=== PATIENT | male | born 1945 | race Caucasian/White ===

== ENCOUNTER 2016-11-11 16:24 | Observation (INO) ==
[2016-11-11] MEDS ORDERED: PHENERGAN IM ONE (18:09)
[2016-11-11] MEDS ORDERED: DILAUDID IM ONE (18:09)
[2016-11-11] MEDS ORDERED: NS 500 ML IV ONE (18:49)
--- NOTE | 2016-11-11 18:58 | PROVIDER DOCUMENTATION ---
This chart was entered by Yesica Alejandre Scribe, acting as scribe for Graeme Snyder MD. HPI-Abdominal Pain/GI Problem - General Chief Complaint: Generalized Pain Stated Complaint: SENT BY DR CARABALLO Time Seen by Provider: 11/11/16 18:00 Source: patient Allergies/Adverse Reactions: Patient Allergies Allergy/AdvReac Type Severity Reaction Status Date / Time adhesive Allergy ITCHING Verified 11/11/16 18:25 Home Medications: Home Medication List Medication Instructions Recorded Confirmed Last Taken Type Citalopram [Celexa] 20 mg PO DAILY 12/28/13 11/11/16 09/19/14 20:00 History Clonidine HCl 0.1 mg PO BID 12/28/13 11/11/16 09/20/14 05:00 History Lorazepam [Ativan] 1 mg PO DAILY 12/28/13 11/11/16 09/19/14 20:00 History SIMVAstatin [Zocor] 40 mg PO DAILY 12/28/13 11/11/16 09/19/14 20:00 History Cholecalciferol (Vit D3) [Vitamin 5,000 unit PO DAILY 09/13/14 11/11/16 05:00 History D] Hydrocodone/Acetaminophen [[place] 10 mg PO Q4-6H PRN PRN 09/13/14 11/11/16 04:00 History 10-325 Tablet] Omeprazole [Prilosec] 40 mg PO DAILY@0700 09/13/14 11/11/16 09/20/14 05:00 History Propranolol HCl [Inderal Xl] 80 mg PO DAILY 09/13/14 11/11/16 09/20/14 05:00 History Vitamin B Complex 100 No.2 [B100 100 mg PO DAILY 09/13/14 11/11/16 09/20/14 05: 00 History Balanced] Apixaban [Eliquis] 2.5 mg PO BID #0 09/21/14 11/11/16 09/16/14 Rx Hydrocodone/APAP 10 mg/325 mg 1 each PO Q8H PRN PRN #5 tablet 09/21/14 11/11/16 Unknown Rx [[place]-10] Sulfamethoxazole/Trimethoprim 1 each PO BID #6 tablet 09/21/14 11/11/16 Unknown Rx [Bactrim Ds Tablet] - History of Present Illness-ABD Nature of Presenting Problems: 71 Y/O M presents to ED with ABD issues. Pt was sent over by Dr. Caraballo,who spoke to a charge nurse about unclogging the feeding tube. Pt daughter states pt hasn't been able to eat and they tried using come to clear the feeding tube and it hasn't unclogged. Pt daughter states that pt was in rehab and she doesn' t believe they were diluting the food before passing through the feeding tube. Abdominal Pain Onset Location: reports: LLQ Pain Radiation: reports: no radiation Quality of Pain: reports: aching Severity in ED: reports: moderate, severe Onset/Duration: reports: this evening Timing: reports: still present Activities at Onset: reports: none Associated Symptoms: denies: cough, diarrhea, fever/chills, sinus congestion/ drainage, nausea, weakness Review of Systems - Adult - REVIEW OF SYSTEMS - ADULT Constitutional: denies: chills, fever Eyes: reports: no symptoms reported Ears, Nose, Mouth & Throat: reports: no symptoms reported Cardiovascular: reports: no symptoms reported Respiratory: denies: cough, shortness of breath Gastrointestinal: reports: abdominal pain. denies: diarrhea, nausea, vomiting Genitourinary: reports: no symptoms reported Musculoskeletal: reports: no symptoms reported Integumentary: reports: no symptoms reported Neurological: reports: no symptoms reported Psychiatric: reports: no symptoms reported Endocrine: reports: no symptoms reported Hematologic/Lymphatic: reports: no symptoms reported Allergic/Immunologic: reports: no symptoms reported All Other Systems: Reviewed and Negative Past History - Adult - PAST MEDICAL HISTORY-ADULT Review of Records: reports: Old Records Reviewed, Nursing Assessment Review, Medications Reviewed, Social history reviewed & non-contributory. Major Childhood Illnesses: reports: denies history Cardiovascular: reports: denies history Respiratory: reports: denies history Gastrointestinal: reports: denies history Obstetrical/Gynecological: reports: denies history Genitourinary: reports: denies history Musculoskeletal: reports: denies history Neurological: reports: denies history Endocrine/Immune: reports: denies history Other Conditions: reports: denies history - IMMUNIZATION STATUS Childhood Immunizations: See Nurse Assessment Flu Vaccine: See Nurse Assessment - FAMILY HISTORY Family History: reviewed, not pertinent - SOCIAL HISTORY Smoking: cigarettes Physical Exam-General - CONSTITUTIONAL General Appearance: alert, mild distress - EYES Eyes: PERRL/EOMI, pink conjunctivae - HEAD, EARS, NOSE, MOUTH & THROAT HENMT: moist mucous membranes, normal ENT inspection, TMs normal, pharynx normal - NECK Neck: full range of motion, supple, normal inspection - RESPIRATORY Respiratory: lungs clear, normal breath sounds - CARDIOVASCULAR Cardiovascular: normal peripheral pulses, regular rate, rhythm - GASTROINTESTINAL (ABDOMEN) Abdominal Exam: other (llq feeding tube) - MUSCULOSKELETAL Back Exam: no CVA tenderness, no vertebral tenderness Extremity: non-tender, normal gait - SKIN Integumentary: normal color, normal turgor - PSYCHIATRIC Psych/Mental Status: normal mood/affect, normal thought content, normal thought process, oriented x 3 Progress - PLAN OF CARE/RESULTS Progress/Plan/Lab Results: Vital Signs - 8 hr 11/11/16 16:31 Temperature 97.4 F L Pulse Rate 74 Respiratory Rate 18 Blood Pressure 142/72 O2 Sat by Pulse Oximetry 98 - CONSULTS/PCP/HOSPITALIST Notification #1 *Consult/PCP/Hospitalist*: Time Discussed: 18:49 Reason/Comments: Plan of Care Consult Disposition: other (Not to remove the peg tube recent surgery) Departure - Departure Date of Disposition Decision: 11/11/16 Time of Disposition Decision: 18:57 DIAGNOSIS: Feeding tube blocked Qualifiers: Encounter type: initial encounter Qualified Code(s): T85.598A - Other mechanical complication of other gastrointestinal prosthetic devices, implants and grafts, initial encounter Disposition: ADMITTED INPATIENT 09 Certified Medical Emergency: Emergent Condition: Good Referrals and Follow-Ups: Thad Lu [Primary Care Provider] - Discharge Education: Smoking, You Can Quit, [id number] - Critical Care Note This patient required my direct & personal management of CC.: No Attestation - Physician/ JAYA Attestation Patient care was provided by Advanced Practice Provider:: No The physician spent face to face time with patient:: Yes Advanced Practice Provider documentation review:: Supervising physician onsite and consulted in the evaluation and care of this patient. The physician did have a face to face encounter with the patient. This chart was documented by the indicated scribe, (Yesica Alejandre Scribe) and accurately reflects the services I performed and decisions made by me, Graeme Snyder MD, as attested by the provider's signature.
[2016-11-11 20:29] LABS: MANUAL DIFF NEEDED? NO
[2016-11-11 20:33] LABS: BASO% 0.9 % (0.0-0.8); EOS# 0.23 X1000 (0.0-0.7); HEMATOCRIT 25.8 % (42.0-52.0); HEMOGLOBIN 7.6 g/dL (14.0-18.0); IMM GRAN# 0.02 X1000 (0.0-0.04); IMM GRAN% 0.3 % (0.0-0.5); LYMPH# 1.98 X1000 (1.2-3.4); LYMPH% 25.4 % (20.5-51.1); MCH 26.3 PG (27-31); MCHC 29.5 g/dL (33-37); MCV 89.3 FL (81-99); MONO# 0.76 X1000 (0.11-0.59); MONO% 9.8 % (1.7-9.3); MPV 8.6 FL (7.4-10.4); NEUT% 60.6 % (42.2-75.2); PLT 665 X1000 (130-400); RBC 2.89 XMIL (4.7-6.1)
[2016-11-11 20:53] LABS: AGAP 6; ALKALINE PHOSPHATASE 80 U/L (32-122); BUN 16 mg/dL (8-22); CALCIUM 8.8 mg/dL (8.8-10.2); CHLORIDE 102 mmol/L (98-107); COSMO 286; GOT 13 U/L (10-34); GPT 6 U/L (10-44); POTASSIUM 4.4 mmol/L (3.5-5.1); SODIUM 143 mmol/L (136-145); TCO2 35 mmol/L (25-35); TOTAL BILIRUBIN < 0.10 mg/dL (0.20-1.00); TOTAL PROTEIN 6.6 g/dL (6.3-8.3)
[2016-11-11] MEDS ORDERED: ZOFRAN IV PRN (21:39)
--- NOTE | 2016-11-11 22:47 | HISTORY AND PHYSICAL ---
PRIMARY CARE PHYSICIAN: Unknown. CHIEF COMPLAINT: PEG tube dislodged. HISTORY OF PRESENTING ILLNESS: A 71-year-old male with a history of rectal cancer, hypertension, hyperlipidemia, COPD and recurrent small bowel obstruction who had presented to the emergency department due to his PEG tube which was dislodged. He was evaluated in the ER and it was thought that he would need admission to replace the PEG tube. The patient is a poor historian. Most of the history is obtained from his previous records; however, he had denied having any fevers, chills, chest pain, shortness of breath. PAST MEDICAL HISTORY: Rectal cancer, hypertension, hyperlipidemia, COPD, CVA, migraines, recurrent small-bowel obstructions. PAST SURGICAL HISTORY: Abdominal surgery. Colostomy. ALLERGIES: Adhesive tape. CURRENT MEDICATIONS: Listed in medication reconciliation. SOCIAL HISTORY: 40+ pack year history of smoking. History of alcohol use in the past. FAMILY HISTORY: No history of coronary disease. REVIEW OF SYSTEMS: Twelve point review of systems is as listed in HPI. Other systems negative. PHYSICAL EXAMINATION: GENERAL: Cooperative, friendly male. He is resting comfortably now. VITAL SIGNS: Temperature 97.4 degrees pulse 74, respiration 18, blood pressure 142/72. HEENT: Atraumatic, normocephalic. Extraocular movements intact. PERRLA. NECK: No masses. CHEST: Clear to auscultation. CARDIOVASCULAR: Regular rate and rhythm. ABDOMEN: Soft. The PEG tube seems displaced. Colostomy in place. : No bladder distention. SKIN: Warm. NEUROLOGIC: He is awake, alert, oriented x1. LABORATORIES AND STUDIES: WBC 7.78, hemoglobin 7.6, hematocrit 25.8, platelets 665,000. Sodium 143, potassium 4.4, chloride 102, CO2 is 35, BUN is 16, creatinine 0.4, glucose is 87. ASSESSMENT: A 71-year-old male with a history of rectal cancer, hypertension, hyperlipidemia and COPD, who had presented to the emergency department due to PEG tube malfunction. Patient will be admitted for further evaluation by Gastroenterology for possible replacement of his PEG tube. 1. PEG tube dislodgement/malfunction. 2. Rectal cancer. 3. Chronic obstructive pulmonary disease. 4. Hypertension. PLAN: 1. We will admit patient to medical floor with telemetry. 2. We will keep patient NPO right now. 3. We will consult electronics tech. 4. Continue with gentle hydration. Support treatment with pain control. Antiemetics as needed. 5. Resume his home medications. 6. Patient on DVT prophylaxis with SCDs. 7. Continue to follow and reassess. cc: Carrington Cintron MD
--- NOTE | 2016-11-12 03:30 | CONSULTATION ---
DATE OF CONSULTATION: 11/11/2016 REFERRING PHYSICIAN: Dr. Schumacher, [facility]. INDICATION FOR CONSULTATION: Dysfunctional PEG tube. HISTORY OF PRESENT ILLNESS: The patient is a 71-year-old, white male who is followed in our clinic for metastatic colorectal cancer as well as multiple colon polyps. He was recently found to have aggressive recurrent disease after many years of being in remission. He was also found to have urethral obstruction and approximately 10 days ago, underwent a urostomy at [facility]. He also had a gastrostomy tube placed as he was found to have postoperative dysphagia with aspiration immediately following extubation postoperatively. According to his daughter, he underwent a swallow study today but the results are pending. However, he was sent to our office urgently because his gastrostomy tube became plugged after he received his morning medications. The long term staff tried for several hours to unclog his feeding tube. He presented to our office. We were unable to unclog the feeding tube and now in the emergency room , his feeding tube remains clogged. Because he has been unable to use his gastrostomy feeding tube , he has been unable to receive tube feedings and his usual medications. The patient's gastrostomy tube was placed approximately 10 days ago and therefore does not have a mature tract which prevents us from replacing his feeding tube at bedside. He is being admitted for IV hydration, reevaluation of his swallow, and for nutrition support. He will also need evaluation of his gastrostomy tube. Therefore, we are asked to participate in his care. PAST MEDICAL HISTORY: 1. Rectal cancer at the rectosigmoid junction, status post an abdominoperineal resection, chemotherapy, and radiation. 2. Metastatic disease with recurrence in 2016. 3. Recurrent partial small bowel obstruction. 4. Hypertension. 5. Hyperlipidemia. 6. COPD. 7. Active smoker. 8. Chronic anxiety. 9. Depression. 10. Arthralgias. 11. Migraine headaches. 12. History of a stroke. 13. Ureteral obstruction requiring a urostomy. 14. Local extension of his tumor with possible involvement of his bladder. 15. DVT. 16. Anxiety. 17. Depression. 18. GI bleed secondary to gastritis and gastric ulcer disease. 19. Chronic constipation. 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 22. 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 PAST SURGICAL HISTORY: 1. Abdominoperineal resection with end-colostomy. 2. Urostomy. 3. Gastrostomy tube. 4. Exploratory laparotomy with lysis of adhesions. 5. Exploratory laparotomy to reverse small bowel obstruction. SOCIAL HISTORY: The patient has smoked 1 pack per day for over 40 years. Although he drank heavy in the past, he stopped drinking in 2012. He is currently on disability. FAMILY HISTORY: Noncontributory to his current medical condition. MEDICATION ALLERGIES: None. He is allergic to adhesives. MEDICATIONS AT THE TIME OF ADMISSION: 1. Vitamin B complex 100 mg daily. 2. Bactrim DS 1 p.o. b.i.d. 3. Zocor 40 mg p.o. daily. 4. Inderal XL 80 mg p.o. daily. 5. Omeprazole 40 mg daily. 6. Ativan 1 mg daily. 7. [place] 10 one p.o. every 8 hours. 8. Clonidine 0.1 mg p.o. b.i.d. 9. Celexa 20 mg daily. 10. Vitamin D 5000 units daily. 11. Eliquis 2.5 mg p.o. b.i.d. PHYSICAL EXAMINATION: General: On exam, he is ill-appearing and in pain. Vital Signs: His blood pressure is 142/72, pulse 74, respirations 18, temperature of 97.4 degrees. His oxygen saturation is 98% on room air. His height is 5 feet 6 inches tall. His weight is 102 pounds which is an interval decrease from his usual body weight of 145 pounds. HEENT: Positive for temporal muscle wasting. His conjunctivae are pale. His sclerae are anicteric. His oropharyngeal mucosa membranes are extremely dry. Pulmonary: His lungs are clear to auscultation with normal expiratory effort. Cardiovascular: Examination reveals regular rate and rhythm with no gallops, murmurs, or rubs. Abdominal Examination: He has normoactive bowel sounds. The abdomen is soft with mild diffuse tenderness. There is an end-colostomy in the left lower quadrant. There is a urostomy in the suprapubic area and a gastrostomy tube in the left upper quadrant. The gastrostomy tube has pale concretions remaining in the tube. In clinic, we were unable to flush the tube after multiple attempts. Despite indwelling of Coca Cola and warm water, we were unable to flush his tube in the emergency room. Extremities: Bilaterally are remarkable for muscle wasting. LABORATORY DATA: Reveals a hemoglobin of 7.6, with hematocrit of 25.8, and a white count of 7.78. He has 665,000 platelets. Sodium is 143, potassium 4.4, chloride 102, CO2 35, BUN 16, creatinine 0.4, with a glucose of 87. Calcium is 8.8, total bilirubin less than 0.1, AST 13, ALT 6, alkaline phosphatase 80, total protein 6.6, and albumin of 3. IMPRESSION: 1. Dysfunctional percutaneous endoscopic gastrostomy. 2. Metastatic colorectal cancer. 3. Protein calorie malnutrition. 4. Marasmus. 5. Significant iron deficiency anemia. RECOMMENDATION: 1. With regard to his gastrostomy tube, because it was placed 10 days ago, we were unable to manipulate the tract. Please do not attempt to replace the tube or change the tube for 6-8 weeks as the tract is immature and at increased risk for peritonitis. 2. From a nutrition standpoint, the patient had a swallow study today. We will attempt to obtain those results tomorrow. If we are able to advance his diet to oral intake, that would be most beneficial for this patient. 3. He will need to maintain his existing G-tube in place for a minimum of 6-8 weeks before it can be removed. 4. With regard to the iron deficiency anemia, I would transfuse the patient to keep his hemoglobin above 8 given that he has chronic obstructive pulmonary disease, heart disease, and has a history of a deep venous thrombosis. 5. The patient is currently on Eliquis. Therefore, I will only plan to perform endoscopic intervention if there is evidence of active bleeding. 6. From a nutrition standpoint, please keep the patient nothing per oral overnight. We will assess his nutritional status once we have a swallow study in the morning and we are able to identify his risk for aspiration. 7. Please consult Dr. Valentino Shepherd in the morning. The patient is known to him. If he needs additional nutrition support, I would recommend providing parental nutrition pending further evaluation. 8. Please check a prealbumin in the morning. 9. Additional recommendations to follow based on his clinical course. cc: MD Carrington Colon MD Surrinder Paul Dang, MD Jay Pohl, MD MTDD
[2016-11-12 07:26] LABS: MANUAL DIFF NEEDED? NO
[2016-11-12 07:27] LABS: BASO% 1.2 % (0.0-0.8); EOS# 0.26 X1000 (0.0-0.7); EOS% 4.4 % (0.0-10.0); HEMATOCRIT 29.4 % (42.0-52.0); HEMOGLOBIN 8.7 g/dL (14.0-18.0); IMM GRAN# 0.03 X1000 (0.0-0.04); IMM GRAN% 0.5 % (0.0-0.5); LYMPH% 30.2 % (20.5-51.1); MCH 26.4 PG (27-31); MCHC 29.6 g/dL (33-37); MCV 89.1 FL (81-99); MONO# 0.68 X1000 (0.11-0.59); MONO% 11.4 % (1.7-9.3); NEUT% 52.3 % (42.2-75.2); PLT 636 X1000 (130-400)
[2016-11-12 07:42] LABS: AGAP 12; ALBUMIN 3.1 g/dL (3.5-5.0); ALKALINE PHOSPHATASE 87 U/L (32-122); BUN 14 mg/dL (8-22); CALCIUM 8.7 mg/dL (8.8-10.2); CHLORIDE 100 mmol/L (98-107); COSMO 283; GOT 14 U/L (10-34); GPT 7 U/L (10-44); POTASSIUM 4.8 mmol/L (3.5-5.1); SODIUM 142 mmol/L (136-145); TCO2 30 mmol/L (25-35); TOTAL BILIRUBIN 0.17 mg/dL (0.20-1.00); TOTAL PROTEIN 6.3 g/dL (6.3-8.3)
[2016-11-12] MEDS: ATIVAN PEG SCH ×2 (08:46→14:09)
[2016-11-12] MEDS: CELEXA PEG SCH ×2 (08:46→14:09)
[2016-11-12] MEDS: CATAPRES PEG SCH ×3 (08:46→20:58)
[2016-11-12] MEDS: ELIQUIS PEG SCH ×3 (08:46→20:58)
[2016-11-12] MEDS: PRILOSEC MISC SCH ×2 (08:46→14:09)
--- NOTE | 2016-11-12 10:09 | Diag Imaging Result Doc PS360 ---
DIPAK SWALLOW W/VIDEO SPEECH THER - 11/12/2016 INDICATION: dysphagia, dysfunctional peg TECHNIQUE: Total fluoroscopy time was 17 seconds. 71 images were obtained. COMPARISON: None FINDINGS: There was a single aspiration event on the first swallow with thin liquids. After that, the patient took several swallows with thin liquids and pureed solid consistencies without any difficulty. The swallowing function was prompt. IMPRESSION: Single aspiration event on the first swallow with thin liquids of uncertain significance. Remainder of the exam was quite successful. Electronically signed by Tay Harris 11/12/2016 10:06 AM
--- NOTE | 2016-11-12 15:33 | PROGRESS NOTE ---
DATE: 11/12/2016 SUBJECTIVE: The patient is resting comfortably in bed. No acute events noted overnight. OBJECTIVE: Vital Signs: Temperature 97 degrees, blood pressure 119/51, heart rate 65, respirations 18, O2 saturations 95% on room air. General: Elderly male, lying in bed, in no acute distress. Head: Normocephalic, atraumatic. Heart: S1, S2. Normal. Regular rate and rhythm. Lungs: Equal air entry bilaterally. No crackles. No rales. Abdomen: Positive bowel sounds. Soft, nontender, nondistended. LABORATORY: White blood cell count 5.9, hemoglobin 8.7, hematocrit 29, platelets 636,000. BUN 14, creatinine 0.4, sodium 142, potassium 4.8, chloride 100, CO2 30. ASSESSMENT AND PLAN: 1. G-tube displacement. We will monitor this closely. GI is following. 2. Nutrition. The patient had a modified barium swallow today that was unremarkable. We will start the patient on a mechanical soft diet. 3. History of rectal cancer status post resection as well as chemotherapy and radiation. Aware. 4. Chronic obstructive pulmonary disease. Stable. 5. Hypertension. Controlled. 6. Acute cerebrovascular accident. Aware. 7. Chronic anticoagulation. Continue on Eliquis. cc: MD Carrington Ingram MD
[2016-11-12] MEDS: DILAUDID IV PRN (20:16)
[2016-11-12] MEDS ORDERED: ZOCOR PEG SCH (21:00)
--- NOTE | 2016-11-12 22:13 | PROGRESS NOTE ---
DATE: 11/12/2016 SUBJECTIVE: The patient states that he is feeling significantly better today. He underwent a swallow study that was negative for aspiration. He is able to tolerate a mechanical soft diet. He has also been placed on oral pain medications with some improvement in his pain, but he remains comfortable. OBJECTIVE: Vital signs: His blood pressure is 126/52, pulse 66, respiration 20 , temperature of 97.8 degrees. HEENT: Negative for jaundice. Abdomen: Remarkable for the colostomy, gastrostomy tube and ileostomy. OBJECTIVE DATA: Reveals a hemoglobin of 8.7 with hematocrit of 29.4 and a white count of 5.97. His platelet count is 636,000. Sodium is 142, potassium 4.8, chloride 100, CO2 of 30, BUN of 14, creatinine 0.4 with a glucose of 90. Calcium is 8.7, total bilirubin 0.17, AST 14, ALT 7, alkaline phosphatase 87, total protein 6.3, and albumin 3.1. His pre-albumin is 22. His vitamin D 25-hydroxy is 31.4. RECOMMENDATION: 1. From a gastrointestinal perspective, the patient is able to tolerate a mechanical soft diet. Therefore, I would advance his diet accordingly. 2. The patient has a new indwelling PEG. It cannot be removed or manipulated for at least 6-8 weeks. Because it is clogged, I recommend careful monitoring of the surrounding skin, but no intervention or manipulation of the tube itself. 3. From a nutrition perspective, the patient would benefit from continuing his inpatient rehab. I have discussed this with the daughter who will work with Loan Counselor in order to achieve this. 4. He will need to return to clinic in 6-8 weeks for interval reassessment. At that time, we will schedule removal of the feeding tube. cc: MD Carrington Colon MD Jay Pohl, MD Katherine Takundwa, MD Surrinder Paul Dang, MD MTDD
[2016-11-13] MEDS: DILAUDID IV PRN ×3 (00:30→15:23)
[2016-11-13] MEDS ORDERED: DILAUDID IV ONE (01:57)
[2016-11-13] MEDS: PRILOSEC MISC SCH (06:22)
[2016-11-13 06:47] LABS: AGAP 11; BUN 15 mg/dL (8-22); CALCIUM 8.9 mg/dL (8.8-10.2); CHLORIDE 99 mmol/L (98-107); COSMO 284; POTASSIUM 4.7 mmol/L (3.5-5.1); SODIUM 142 mmol/L (136-145); TCO2 32 mmol/L (25-35)
[2016-11-13 07:10] LABS: HEMATOCRIT 28.1 % (42.0-52.0); HEMOGLOBIN 8.2 g/dL (14.0-18.0); MCH 26.2 PG (27-31); MCHC 29.2 g/dL (33-37); MCV 89.8 FL (81-99); MPV 9.1 FL (7.4-10.4); RBC 3.13 XMIL (4.7-6.1)
[2016-11-13] MEDS: CELEXA PEG SCH (08:51)
[2016-11-13] MEDS: ELIQUIS PEG SCH (08:51)
[2016-11-13] MEDS: ATIVAN PEG SCH (08:51)
[2016-11-13] MEDS: CATAPRES PEG SCH (08:52)
[2016-11-13] MEDS ORDERED: INDERAL LA PEG SCH (09:00)
[2016-11-13 09:20] VITALS: BP 119/56
--- NOTE | 2016-11-13 13:40 | PROGRESS NOTE ---
DATE: 11/13/2016 SUBJECTIVE: Today Mr. Kennedy referred to be doing relatively better. He has a family member at the bedside. OBJECTIVE: Vital signs: Blood pressure is 119/56, pulse over 57, respiration is 17 and temperature 97.5 degrees. General exam: Mr. Kennedy is a 71-year-old male. He looks undernourished. He is in bed not seemingly distressed. HEENT: Mucosa is pink and moist. Anicteric. Acyanotic. Neck: Supple. Chest: Good air entry bilaterally. No crepitations. No rhonchi. Cardiovascular: Regular rate and rhythm. Abdomen: Soft. There is a long subxiphoid to the pubis scar. There is also a fresh surgical wound also infraumbilical which is affronted with clips. The patient has a left side colostomy and has a right side diverting ureteral ileostomy. There is a PEG tube in place. Extremities: No pedal edema. LABOR CONCILIATOR: Patient is awake and alert and oriented x4. LABORATORY DATA: WBC is 4.37, hemoglobin is 8.2, platelet count of 552. Chemistries reviewed and completely unremarkable. ASSESSMENT: 1. Gastrostomy tube placement. Patient has been evaluated by Dr. Caraballo. At this point, there is not any further recommendations for manipulation. She recommends just to keep the percutaneous endoscopic gastrostomy tube in place and to be evaluated by the gastroenterology doctor who put it in, in about 6 weeks in [place]. 2. Chronic obstructive pulmonary disease, stable. 3. Hypertension, stable. 4. Chronic anticoagulation on Eliquis.. 5. Protein calorie malnutrition. 6. Nutritional needs: Patient was using the percutaneous endoscopic gastrostomy tube for nutrition; however, while he is here he has been able to eat some gastrointestinal soft diet and he is tolerating that. So, we are going to continue with his enteral feedings and hold off the percutaneous endoscopic gastrostomy tube. DISPOSITION: Patient came from [facility] and has been, therefore, just barely one week. However the family member who is at the bedside states that they do not want him to go back to [facility], and they would prefer that he goes to [facility]. We consulted the social media specialist to make arrangements to see if patient can be admitted to [facility] for physical rehabilitation. Patient did not qualify to go [facility]. request to send him home with home health. cc: MD Carrington Martin MD MTDD
--- NOTE | 2016-11-14 05:18 | DISCHARGE SUMMARY ---
ADMISSION DATE: 11/11/2016 DISCHARGE DATE: 11/13/2016 DATE OF ADMISSION: 11/11/2016. DATE OF DISCHARGE: 11/13/2016. CONSULTATIONS: Dr. Caraballo with Gastroenterology. STUDIES AND PROCEDURES: Modified barium swallow: Showed single aspiration event on for swallow with thin liquids of uncertain significance. Remainder of exam was quite successful. DISCHARGE DIAGNOSES: 1. Gastrotomy tube placement. Evaluated by Dr. Caraballo with no further recommendations for manipulations. She recommends to keep the PEG tube in place and be evaluated by the GI doctor who put it in [place] in 6 weeks. Stable for discharge. 2. COPD, stable. 3. Hypertension, stable. 4. Chronic anticoagulation on Eliquis. 5. Protein calorie malnutrition. 6. Nutritional needs. The patient was using a PEG tube for nutrition however while at [facility] patient had been able to a GI soft diet and tolerating well. We continued with enteral feedings and held off on PEG tube. HOSPITAL COURSE: Mr. Kennedy is a 71-year-old gentleman with a history of rectal cancer, hypertension, hyperlipidemia, COPD, and recurrent small-bowel obstruction who presented to the ED secondary to PEG tube dislodgement. He is followed in Dr. Caraballo's clinic for metastatic colorectal cancer as well as multiple colon polyps, recently found to have aggressive recurrent disease after many years of being in remission as well as urethral obstruction and approximately 10 days ago underwent a urostomy the [facility]. He also had a gastrostomy tube placed, as he was found to have postoperative dysphagia with aspiration immediately following extubation postoperatively. Initially, he had gone to Dr. Caraballo's office for the tube to be unclogged, however at her office they were unable to unclog the feeding today so they sent him to the emergency room, where his feeding remained clogged. The feeding tube was placed 10 days ago and did not have a mature tract, which prevented her from replacing the tube. He was started on IV hydration and did a re- evaluation of his swallow study that showed single aspiration event on first swallow with thin liquids of uncertain significance and remainder of the exam was quite successful. He was initiated on a mechanical soft diet. He has tolerated that well. Placed on oral medications. Per GI, we can advance his diet accordingly. His PEG tube cannot be removed or manipulated for at least 6-8 weeks because it is clogged. She he recommended careful monitoring of the surrounding skin, but no intervention or manipulation of the tube itself. Also recommended to continue inpatient rehab and follow up at the [facility] in 6-8 weeks for a reassessment and schedule removal of his feeding tube. Dr. Mittal spoke with the daughter and the patient. They are going to go home with home health. VITAL SIGNS AT THE TIME OF DISCHARGE: Temperature is 97.5 degrees, heart rate 57, respirations 17, blood pressure 119/56, O2 is 97% on room air. DISCHARGE DIET: Mechanical soft. DISCHARGE MEDICATIONS: 1. Eliquis 2.5 mg p.o. b.i.d. 2. Vitamin D a 1000 units p.o. daily. 3. Celexa 20 mg p.o. daily. 4. Clonidine 0.1 mg p.o. b.i.d. 5. [place] 10/325 1 each p.o. every 4 or 6 hours p.r.n. pain. 6. Ativan 1 mg p.o. daily. 7. Prilosec 40 mg p.o. daily. 8. 80 mg p.o. daily. 9. Zocor 40 mg p.o. daily. 10.100 mg p.o. daily. FOLLOWUP: Ms. Kennedy is being discharged home with home health. He can follow up with his primary care physician, Dr. Thad Lu, in 7-10 days. He is to follow up with Dr. Caraballo in 6-8 weeks for a removal of his PEG tube. He can return to the emergency department for any worsening of symptoms. Dictated by MIGNON Tirado for Homer Mitatl MD cc: MD Carrington Martin MD Jay Pohl, MD MTDD
== END 2016-11-13 16:17 | disposition home health service (06) ==
LOC: ED 16:24 → 3N 16:24 → SUATTDRO 21:10 → 3N 11-12 18:40
PROVIDERS: ADMIT Emergency Medicine; ATTEND Internal Medicine